=== PATIENT | female | born 1995 | race Caucasian/White ===

== ENCOUNTER 2024-11-05 19:25 | Emergency (ER) | payer BC, SELFPAY ==
[2024-11-05 19:32] VITALS: BP 128/82
[2024-11-05 21:49] LABS: Hemoglobin 11.5 g/dL (12.0-16.0); Mean Corp Hgb Conc. 34.8 g/dL (33.0-37.0); Mean Corpuscular Hgb 31.7 pg (27.0-31.0); Mean Corpuscular Volume 90.9 fL (81.0-99.0); Mean Platelet Volume 10.8 fL (7.4-10.4); Platelet Count 227 10^3/uL (130-400); Red Blood Cell Count 3.63 10^6/uL (4.20-5.40); Red Cell Dist. Width 13.1 % (11.5-14.5); White Blood Cell Count 13.7 10^3/uL (4.8-10.8)
[2024-11-05 22:01] LABS: ALT (SGPT) 25 U/L (0-35); AST (SGOT) 31 U/L (14-36); Albumin 3.6 g/dl (3.5-5.0); Alkaline Phosphatase 85 U/L (38-126); Blood Urea Nitrogen 13 mg/dl (7-17); Calcium 8.6 mg/dl (8.4-10.2); Carbon Dioxide 23 mmol/L (22-30); Chloride 104 mmol/L (98-107); Glucose 111 mg/dl (70-99); Potassium 3.2 mmol/L (3.5-5.1); Sodium 134 mmol/L (135-145); Total Bilirubin 0.4 mg/dl (0.2-1.3); Total Protein 6.3 g/dl (6.3-8.2); eGFR > 60.00
--- NOTE | 2024-11-05 23:24 | ED.GENMED ---
History of Present Illness
General
Chief Complaint: Nose Bleed
Source: patient
Exam Limitations: none
Time Seen by Provider: 11/05/24 22:46
Nursing documentation reviewed up to this point in time: agreed with
History of Present Illness
History of Present Illness:
29-year-old female 5 months states she has had several nosebleeds in the past week, today she had 2 of them, one of them lasting an hour and a half. She was blowing clots out of her nose. Denies lightheadedness or dizziness.
Past History
Past History
ED Past Medical History: None
ED Past Surgical History: None
Social History
Tobacco: Non-smoker
Alcohol: None
Drug: None
Personal: Single
Living: alone
Employment: Employed
Family History
Family History: Negative Early CAD
Review of Systems
Review of Systems
Allergies reviewed?: Yes
All Other Systems: ROS reviewed and negative except as documented in HPI and ROS
EENT: Reports other (nosebleed left side)
ABD/GI: Denies nausea or vomiting
Neurological: Reports no symptoms
Phy Exam
Physical Exam
Physical Exam:
GENERAL: No acute distress. A&Ox3.
CONSTITUTIONAL: Afebrile.
ENMT: moist mucus membranes, Pharynx nl, left nasal passage with active bleeding at Kiesselbach's plexus
RESPIRATORY: Regular respirations, nonlabored, lungs clear.
CARDIOVASCULAR: Regular rate and rhythm, no murmurs, no rubs.
GI: Soft, nontender
MUSCULOSKELETAL: Moves with ease. Well perfused.
SKIN: Warm, dry, pink
PSYCH: Normal mood and affect. Well kept, interactive and appropriate
NEUROLOGIC: Awake, alert and oriented. No focal neurological deficits
Course
Orders/Labs/Results
Orders:
Orders
11/05/24 21:34
CMP [Comprehensive Metabolic Panel] Urgent
Complete Blood Count/No Diff Urgent
Abnormal Lab Results
11/05/24
21:34
WBC 13.7 H 10^3/uL
(4.8-10.8)
RBC 3.63 L 10^6/uL
(4.20-5.40)
Hgb 11.5 L g/dL
(12.0-16.0)
Hct 33.0 L %
(37.0-47.0)
MCH 31.7 H pg
(27.0-31.0)
MPV 10.8 H fL
(7.4-10.4)
Sodium 134 L mmol/L
(135-145)
Potassium 3.2 L mmol/L
(3.5-5.1)
Creatinine 0.5 L mg/dL
(0.6-1.0)
Glucose 111 H mg/dl
(70-99)
11/05/24 21:34
11/05/24 21:34
Vital Signs
Initial and Last Documented VS:
Initial Vital Signs
Temp Pulse Resp BP Pulse Ox
98.3 F 96 18 128/82 100
11/05/24 19:32 11/05/24 19:32 11/05/24 19:32 11/05/24 19:32 11/05/24 19:32
Last Documented Vital Signs
Temp Pulse Resp BP Pulse Ox
98.3 F 96 18 118/77 100
11/05/24 19:32 11/05/24 19:32 11/05/24 19:32 11/05/24 23:40 11/05/24 19:32
Procedures
Nosebleed
Drug treatment: Lidocaine and Epinephrine
Treatment: Silver nitrate cautery
Post treatment bleeding: none- good control
MDM/Problems Addressed
MDM/Problems Addressed:
29-year-old female 5 months states she has had several nosebleeds in the past week, today she had 2 of them, one of them lasting an hour and a half. She was blowing clots out of her nose. Denies lightheadedness or dizziness.
CBC, CMP with no clinically significant abnormality.
Bleeding is well-controlled after cauterization
Patient is stable for discharge
*Critical Care Note
Total Time (30-74mins, 75-104mins- exclusive of procedures): Not Applicable
ED Attending Note
-
Portions of this chart may have been created with voice recognition software.� Occasional wrong word or��sound alike� substitutions may have occurred due to the inherent limitations of voice recognition software.
Discharge Plan
Departure
Patient Disposition: Home (Routine Discharge)
Date of Disposition: 11/05/24
Time of Disposition: 23:28
Patient with high blood pressure during this ER visit?: No
Condition: Good
Discharge Problem:
Anterior epistaxis
Instructions: Nosebleeds (DC)
Prescriptions:
No Action
multivitamin 1 EACH tablet
1 ea PO DAILY
Control
1 tab PO DAILY
ondansetron 4 MG tablet,disintegrating
4 mg PO TIDPRN PRN (Reason: nausea/vomiting) Qty: 10 0RF
omeprazole magnesium [Prilosec OTC] 20 MG tablet,delayed release (DR/EC)
20 mg PO DAILY Qty: 20 0RF
Referrals:
Isac Wang MD [Active] - As needed
Cindy Dooley PA-C [Family Provider] -
Activity Restrictions/Additional Instructions:
As we discussed, if your nose bleeds again, put the nose clamp on for 15 minutes then remove it and blow your nose if still bleeding but the nose clamp back on for 15 minutes again and do the third time if needed. If after 3 tries still bleeding,
return here
Gently insert Vaseline into the nostril with a cotton tip swab twice a day for the next 3 days
Interventions
Interventions:
*Risk Screen - Suicide Last Done: 11/05/24 19:32
*General Assessment Last Done: 11/05/24 23:40
*Neglect/Abuse Screening Last Done: 11/05/24 19:32
ED- Fall Risk Assessment Last Done: 11/05/24 23:40
*ED COVID-19 Vaccine History Last Done: 11/05/24 23:40
*Nursing Disposition Last Done: 11/05/24 23:40
ED-EENT Assessment Last Done: 11/05/24 23:40
Discharge Date and Time
Discharge Date/Time: 11/05/24 23:46
Print Language: ARMENIAN
[2024-11-05 23:40] VITALS: BP 118/77
== END 2024-11-05 23:46 | disposition home or self-care (01) ==
LOC: EMR 19:25
PROVIDERS: Registered Nurse; EMERGENCY PHYSICIAN Emergency Medicine; FAMILY PHYSICIAN Physician Assistant
DX: O26.892 Other specified pregnancy related conditions, second trimester (principal); R04.0 Epistaxis; Z3A.20 20 weeks gestation of pregnancy; Z86.16 Personal history of COVID-19
CPT/HCPCS: 99283; 30901; 80053; 85027